=== PATIENT | female | born 1995 | race Caucasian/White ===

== ENCOUNTER 2021-04-11 14:33 | Emergency (ER) | payer SELFPAY ==
[2021-04-11 14:48] VITALS: BP 111/64; PULSE 82; TEMP 99.2; BMI 21.5
[2021-04-11] MEDS ORDERED: SODIUM CHLORIDE 0.9% 500 ML INFUS.BAG IV ONE (15:34)
[2021-04-11 17:04] LABS: BASO % 0.5 % (0-2.0); EOS % 0.5 % (0-4.5); HEMOGLOBIN 10.7 GM/dL (10.7-15.3); LYMPH % 17.8 % (8-40); MCHC 32.5 g/dl (32.0-36.0); MEAN CELL VOLUME 73.9 fl (80-96); MEAN PLT VOLUME 6.5 fl (7.5-11.1); MONO % 5.2 % (3.8-10.2); PLATELET COUNT 458 10^3/uL (134-434); RBC 4.47 M/mm3 (3.60-5.2); RDW 16.1 % (11.6-15.6); WHITE BLOOD COUNT 9.2 K/mm3 (4.0-10.0)
[2021-04-11 17:08] LABS: URINE APPEARANCE CLEAR; URINE BILIRUBIN NEGATIVE (NEGATIVE); URINE COLOR YELLOW; URINE GLUCOSE (UA) NEGATIVE (NEGATIVE); URINE KETONE NEGATIVE (NEGATIVE); URINE LEUK ESTERASE 1+ (NEGATIVE); URINE NITRITE NEGATIVE (NEGATIVE); URINE PROTEIN NEGATIVE (NEGATIVE); URINE UROBILINOGEN 0.2 mg/dL (0.2-1.0)
[2021-04-11 17:09] LABS: HCG,QUALITATIVE URINE Negative
[2021-04-11 17:27] LABS: ALBUMIN 3.7 g/dl (3.4-5.0); BLOOD UREA NITROGEN 10.6 mg/dL (7-18)
[2021-04-11 17:30] LABS: CREATININE 0.6 mg/dL (0.55-1.3)
[2021-04-11 17:31] LABS: BILIRUBIN,TOTAL 0.3 mg/dL (0.2-1)
[2021-04-11] MEDS ORDERED: KETOROLAC TROMETHAMINE 30 MG/1 ML VIAL IVPUSH ONE (18:46)
[2021-04-11] MEDS ORDERED: KETOROLAC TROMETHAMINE 30 MG/1 ML VIAL ONE (18:48)
[2021-04-11 20:15] LABS: EPI CELLS 21.4 /uL (0-25.1); HYALINE CASTS 1.27 /uL (0-3.1); URINE BACTERIA 405.7 /uL (0-1359); URINE RBC 10.1 /uL (0-23.9); URINE WBC 31.2 /uL (0-25.8)
== END 2021-04-11 19:19 | disposition home or self-care (01) ==
LOC: JER 14:33
PROC: 3E033GC Introduction of Other Therapeutic Substance into Peripheral Vein, Percutaneous Approach (ICD-10-PCS; principal; 2021-04-11)
DX: R10.11 Right upper quadrant pain (principal)
CPT/HCPCS: 36415; 76705-TC; 80053; 81003; 84703; 85025; 87086; 99284-25